=== PATIENT | male | born 1995 | race Caucasian/White ===

== ENCOUNTER 2017-06-04 13:23 | Emergency (ER) | payer BC ==
[2017-06-04 13:26] VITALS: BP 132/82; PULSE 111; RESP 18; TEMP 98.5
[2017-06-04] MEDS ORDERED: IBUPROFEN 600 MG STARTER PACK 4 TAB BTL PO STA (13:42)
[2017-06-04] MEDS ORDERED: ACETAMINOPHEN TAB 500 MG TAB PO STA (13:42)
--- NOTE | 2017-06-04 13:45 | ED ---
ENT HPI - General Chief complaint: ENT Stated complaint: Cough, headache Time Seen by Provider: 06/04/17 13:26 Source: patient Mode of arrival: ambulatory Limitations: no limitations - History of Present Illness Initial comments: 20 mg of the emergency Department chief complaint of cough, minor sore throat and headache for the past 2 days. Patient reports that he started coming down with symptoms yesterday. He reports that he went to work today, and fell he didn't go to work. Patient reports that he was left work and was told to come the emergency department. Patient states that he's had no known fevers or chills. Denies any significant headache he reports a 3 out of 10. No recent Motrin or Tylenol. Patient denies any neurological deficits or weakness. Denies any significant shortness of breath. He received VACCINATIONS. DENIES ANY NECK PAIN. DENIES ANY RECENT FALLS OR TRAUMA. She reports he came here for a work note. - Related Data Previous Rx's Medication Instructions Recorded Acetaminophen-Codeine 300-30mg 1 each PO Q6H PRN #20 tablet 05/07/15 [Tylenol #3] Ciprofloxacin HCl [Cipro] 500 mg PO Q12HR #20 tablet 05/07/15 metroNIDAZOLE [Flagyl] 500 mg PO QID #40 tab 05/07/15 Ibuprofen 800 mg PO BID #20 tablet 06/04/17 guaiFENesin-DM 600/30MG [Mucinex 1 each PO Q12HR #20 tab.er.12h 06/04/17 Dm] Allergies Allergy/AdvReac Type Severity Reaction Status Date / Time No Known Allergies Allergy Verified 06/04/17 13:26 Review of Systems ROS Statement: Those systems with pertinent positive or pertinent negative responses have been documented in the HPI. ROS Other: All systems not noted in ROS Statement are negative. Past Medical History Past Medical History: No Reported History History of Any Multi-Drug Resistant Organisms: None Reported Past Surgical History: No Surgical Hx Reported Past Psychological History: No Psychological Hx Reported Smoking Status: Never smoker Past Alcohol Use History: None Reported Past Drug Use History: None Reported General Exam - General Exam Comments Initial Comments: Well-appearing 21-year-old male. No stress. Limitations: no limitations General appearance: alert, in no apparent distress Head exam: Present: atraumatic Eye exam: Present: normal appearance, PERRL, EOMI. Absent: scleral icterus, conjunctival injection, periorbital swelling ENT exam: Present: normal exam, mucous membranes moist Neck exam: Present: normal inspection. Absent: tenderness, meningismus, lymphadenopathy Respiratory exam: Present: normal lung sounds bilaterally. Absent: respiratory distress, wheezes, rales, rhonchi, stridor Cardiovascular Exam: Present: regular rate, normal rhythm, normal heart sounds. Absent: systolic murmur, diastolic murmur, rubs, gallop, clicks GI/Abdominal exam: Present: soft, normal bowel sounds. Absent: distended, tenderness, guarding, rebound, rigid Extremities exam: Present: normal inspection, full ROM, normal capillary refill. Absent: tenderness, pedal edema, joint swelling, calf tenderness Back exam: Present: normal inspection Neurological exam: Present: alert, oriented X3, CN II-XII intact Psychiatric exam: Present: normal affect, normal mood Skin exam: Present: warm, dry, intact, normal color. Absent: rash Course Vital Signs 06/04/17 13:24 Temperature 98.5 F Pulse Rate 111 H Respiratory 18 Rate Blood Pressure 132/82 O2 Sat by Pulse 95 Oximetry Medical Decision Making - Medical Decision Making 21-year-old male presents emergency Department chief complaint cough, sore throat and headache for one day. Patient APPEARS normal. Patient reports having 3 out of 10. Patient's lungs are clear to auscultation. Neurologically intact. Patient has no fever at this time. Does report a mild headache. Given Tylenol and Motrin. Patient was informed is likely a viral illness, was written for decongestant medication. Discussed the same monitor for any fevers or any worsening symptoms and return to emergency department. He was given a note for work for today and tomorrow. Discussed MrDiony rest, remain hydrated. Patient agrees to treatment plan will comply. Return parameters were discussed. Disposition Clinical Impression: Upper respiratory infection Disposition: HOME SELF-CARE Condition: Good Instructions: Upper Respiratory Infection (ED) Additional Instructions: Ice to rest, increase fluids. Take [id number] cold medication as directed. Motrin Tylenol for fever and headache. Return to the emergency department if any alarming signs or symptoms occur. Prescriptions: guaiFENesin-DM 600/30MG [Mucinex Dm] 1 each PO Q12HR #20 tab.er.12h Ibuprofen 800 mg PO BID #20 tablet Referrals: Boom Abdi MD [Primary Care Provider] - 1-2 days Time of Disposition: 13:43
== END 2017-06-04 14:02 | disposition home or self-care (01) ==
LOC: EC 13:23
DX: J06.9 Acute upper respiratory infection, unspecified (principal)
CPT/HCPCS: 99283

== ENCOUNTER 2017-06-09 09:38 | Emergency (ER) | payer BC ==
[2017-06-09 09:42] VITALS: BP 141/81; PULSE 88; RESP 20; TEMP 98
--- NOTE | 2017-06-09 10:18 | ED ---
ENT HPI - General Chief complaint: Dental/Oral Stated complaint: poss dental abscess Time Seen by Provider: 06/09/17 09:43 Source: patient, RN notes reviewed Mode of arrival: ambulatory Limitations: no limitations - History of Present Illness Initial comments: 21-year-old male presents emergency Department with chief complaint of dental pain. Patient states bothering her last few days. Patient states all swallowing today. He states he has a crown in that region. He has not contacted his dentist. Denies fever, chills, neck pain. - Related Data Previous Rx's Medication Instructions Recorded Acetaminophen-Codeine 300-30mg 1 each PO Q6H PRN #20 tablet 05/07/15 [Tylenol #3] Ciprofloxacin HCl [Cipro] 500 mg PO Q12HR #20 tablet 05/07/15 metroNIDAZOLE [Flagyl] 500 mg PO QID #40 tab 05/07/15 Ibuprofen 800 mg PO BID #20 tablet 06/04/17 guaiFENesin-DM 600/30MG [Mucinex 1 each PO Q12HR #20 tab.er.12h 06/04/17 Dm] Acetaminophen-Codeine 300-30mg 1 tab PO Q4H PRN #20 tablet 06/09/17 [Tylenol #3] Chlorhexidine Gluconate [Peridex] 15 ml PO BID #473 ml 06/09/17 Penicillin V Potassium [Pen Vee K] 500 mg PO QID #40 tab 06/09/17 Allergies Allergy/AdvReac Type Severity Reaction Status Date / Time No Known Allergies Allergy Verified 06/09/17 10:02 Review of Systems ROS Statement: Those systems with pertinent positive or pertinent negative responses have been documented in the HPI. ROS Other: All systems not noted in ROS Statement are negative. Past Medical History Past Medical History: No Reported History History of Any Multi-Drug Resistant Organisms: None Reported Past Surgical History: No Surgical Hx Reported Past Psychological History: No Psychological Hx Reported Smoking Status: Never smoker Past Alcohol Use History: None Reported Past Drug Use History: None Reported General Exam Limitations: no limitations General appearance: alert, in no apparent distress Head exam: Present: atraumatic, normocephalic, normal inspection Eye exam: Present: normal appearance, PERRL, EOMI. Absent: scleral icterus, conjunctival injection, periorbital swelling ENT exam: Present: mucous membranes moist, TM's normal bilaterally, normal external ear exam. Absent: normal exam, normal oropharynx (Swelling over the left gumline, left lower dental physician, left-sided facial swelling and tenderness there is no drainable abscess noted) Neck exam: Present: normal inspection, full ROM. Absent: tenderness, meningismus, lymphadenopathy Respiratory exam: Present: normal lung sounds bilaterally. Absent: respiratory distress, wheezes, rales, rhonchi, stridor Cardiovascular Exam: Present: regular rate, normal rhythm, normal heart sounds. Absent: systolic murmur, diastolic murmur, rubs, gallop, clicks Course Vital Signs 06/09/17 09:40 Temperature 98.0 F Pulse Rate 88 Respiratory 20 Rate Blood Pressure 141/81 O2 Sat by Pulse 96 Oximetry Medical Decision Making - Medical Decision Making 21-year-old male presents emergency Department with facial swelling dental pain. Patient infection advised follow-up with PCP, dental clinic will start on Peridex, penicillin Disposition Clinical Impression: Dental abscess, Toothache Disposition: HOME SELF-CARE Condition: Stable Instructions: Dental Abscess (ED) Additional Instructions: Please return to the Emergency Department if symptoms worsen or any other concerns. Prescriptions: Acetaminophen-Codeine 300-30mg [Tylenol #3] 1 tab PO Q4H PRN #20 tablet PRN Reason: pain Chlorhexidine Gluconate [Peridex] 15 ml PO BID #473 ml Penicillin V Potassium [Pen Vee K] 500 mg PO QID #40 tab Referrals: Boom Abdi MD [Primary Care Provider] - 1-2 days Time of Disposition: 10:18
== END 2017-06-09 10:28 | disposition home or self-care (01) ==
LOC: EC 09:38
DX: K04.7 Periapical abscess without sinus (principal)
CPT/HCPCS: 99282

== ENCOUNTER 2017-11-01 11:56 | Emergency (ER) | payer BC ==
[2017-11-01 12:17] VITALS: BP 127/59; PULSE 58; RESP 17; TEMP 98.1
--- NOTE | 2017-11-01 12:24 | ED ---
Medical Clearance HPI - General Chief complaint: Medical Clearance Stated complaint: VOMITING Time Seen by Provider: 11/01/17 12:20 Source: patient Mode of arrival: ambulatory - History of Present Illness Initial comments: 22-year-old male patient presents to the emergency department today requesting a work note. Patient states that this morning when he woke from sleep he had vomiting and diarrhea. Patient states that he vomited 3-4 times. He had a couple episodes of diarrhea. He was concerned that he may have food poisoning so he stayed home from work. Patient states that he slept for a few more hours and woke up feeling well. States he has tolerated oral intake without any further vomiting or difficulty. He denies any current abdominal pain, fevers, or chills. States now he is feeling well and has no concerns. States that he needs a work not ollie he does not get fired from his job. Patient denies any recent rash, shortness breath, chest pain, back pain, numbness, tingling, dizziness, weakness, hematuria, dysuria, urinary urgency, urinary frequency, headache, visual changes, or any other complaints. Home medications: Previous Rx's Medication Instructions Recorded Acetaminophen-Codeine 300-30mg 1 each PO Q6H PRN #20 tablet 05/07/15 [Tylenol #3] Ciprofloxacin HCl [Cipro] 500 mg PO Q12HR #20 tablet 05/07/15 metroNIDAZOLE [Flagyl] 500 mg PO QID #40 tab 05/07/15 Ibuprofen 800 mg PO BID #20 tablet 06/04/17 guaiFENesin-DM 600/30MG [Mucinex 1 each PO Q12HR #20 tab.er.12h 06/04/17 Dm] Acetaminophen-Codeine 300-30mg 1 tab PO Q4H PRN #20 tablet 06/09/17 [Tylenol #3] Chlorhexidine Gluconate [Peridex] 15 ml PO BID #473 ml 06/09/17 Penicillin V Potassium [Pen Vee K] 500 mg PO QID #40 tab 06/09/17 Allergies/Adverse reactions: Allergies Allergy/AdvReac Type Severity Reaction Status Date / Time No Known Allergies Allergy Verified 11/01/17 12:14 Review of Systems ROS Statement: Those systems with pertinent positive or pertinent negative responses have been documented in the HPI. ROS Other: All systems not noted in ROS Statement are negative. Past Medical History Past Medical History: No Reported History History of Any Multi-Drug Resistant Organisms: None Reported Past Surgical History: No Surgical Hx Reported Past Psychological History: No Psychological Hx Reported Smoking Status: Never smoker Past Alcohol Use History: None Reported Past Drug Use History: None Reported General Exam Limitations: no limitations General appearance: alert, in no apparent distress, other (Physical well- developed, well-nourished adult male patient in no acute distress. Vital signs upon presentation are temperature 98.1F, pulse 58, respirations 17, blood pressure 127/59, pulse ox 98% on room air.) Eye exam: Present: normal appearance, PERRL, EOMI. Absent: scleral icterus, conjunctival injection, periorbital swelling ENT exam: Present: normal exam, normal oropharynx, mucous membranes moist Respiratory exam: Present: normal lung sounds bilaterally. Absent: respiratory distress, wheezes, rales, rhonchi, stridor Cardiovascular Exam: Present: regular rate, normal rhythm, normal heart sounds. Absent: systolic murmur, diastolic murmur, rubs, gallop, clicks GI/Abdominal exam: Present: soft, normal bowel sounds. Absent: distended, tenderness, guarding, rebound, rigid Neurological exam: Present: alert, oriented X3, CN II-XII intact Psychiatric exam: Present: normal affect, normal mood Skin exam: Present: warm, dry, intact, normal color. Absent: rash Course Vital Signs 11/01/17 12:14 Temperature 98.1 F Pulse Rate 58 L Respiratory 17 Rate Blood Pressure 127/59 O2 Sat by Pulse 98 Oximetry Medical Decision Making - Medical Decision Making 22-year-old male patient presented to the emergency department today requesting work note after having vomiting and diarrhea this morning. Physical examination is unremarkable. Abdomen is soft and nontender. Patient denies any current symptoms. Has been tolerating oral intake without any further vomiting. Denies any current abdominal pain. Did discuss return parameters. Instructed him to follow-up with his primary care physician. He is instructed to return here immediately for any new, worsening, or concerning symptoms. He verbalizes understanding and agrees with this plan. Disposition Clinical Impression: Vomiting and diarrhea Disposition: HOME SELF-CARE Condition: Good Instructions: Acute Nausea and Vomiting (ED), Acute Diarrhea (ED) Additional Instructions: Increase fluids. Follow-up with your primary care physician for recheck as soon as possible. Return here immediately for any new, worsening, or concerning symptoms. Referrals: Boom Abdi MD [Primary Care Provider] - 1-2 days Time of Disposition: 12:24
== END 2017-11-01 12:44 | disposition home or self-care (01) ==
LOC: EC 11:56
DX: R11.10 Vomiting, unspecified (principal); R19.7 Diarrhea, unspecified
CPT/HCPCS: 99282

== ENCOUNTER 2018-09-20 10:26 | Emergency (ER) | payer BC ==
[2018-09-20 10:30] VITALS: BP 119/61; PULSE 66; RESP 18; TEMP 97.7
[2018-09-20] MEDS ORDERED: ONDANSETRON 4 MG ODT STARTER PACK 2 TAB BTL PO STA (11:02)
--- NOTE | 2018-09-20 11:10 | ED ---
General Adult HPI - General Chief complaint: Nausea/Vomiting/Diarrhea Stated complaint: vomiting Time Seen by Provider: 09/20/18 10:49 Source: patient, RN notes reviewed Mode of arrival: ambulatory Limitations: no limitations - History of Present Illness Initial comments: 23-year-old male without any past medical history presents to the emergency department for a chief complaint of vomiting and diarrhea 2 days. Patient states he has vomited a few times yesterday and today. He states he has felt nauseous. He states he has been able to keep down some liquids. Patient also admits to abdominal cramping right before he vomits but denies any significant pain. He denies any fevers or chills. He also admits to mild diarrhea over the past 2 days. Patient states he is here for a work note to return tomorrow. He states that he does not get this note he will be fired from his job. Patient has no other complaints at this time including shortness of breath, chest pain, abdominal pain, headache, or visual changes. - Related Data Home Medications Medication Instructions Recorded Confirmed No Known Home Medications 09/20/18 09/20/18 Allergies Allergy/AdvReac Type Severity Reaction Status Date / Time No Known Allergies Allergy Verified 09/20/18 10:53 Review of Systems ROS Statement: Those systems with pertinent positive or pertinent negative responses have been documented in the HPI. ROS Other: All systems not noted in ROS Statement are negative. Past Medical History Past Medical History: No Reported History History of Any Multi-Drug Resistant Organisms: None Reported Past Surgical History: No Surgical Hx Reported Past Psychological History: No Psychological Hx Reported Smoking Status: Never smoker Past Alcohol Use History: None Reported Past Drug Use History: None Reported General Exam Limitations: no limitations General appearance: alert, in no apparent distress Head exam: Present: atraumatic, normocephalic, normal inspection Eye exam: Present: normal appearance, PERRL, EOMI. Absent: scleral icterus, conjunctival injection, periorbital swelling ENT exam: Present: normal exam, mucous membranes moist Neck exam: Present: normal inspection, full ROM. Absent: tenderness, meningismus, lymphadenopathy Respiratory exam: Present: normal lung sounds bilaterally. Absent: respiratory distress, wheezes, rales, rhonchi, stridor Cardiovascular Exam: Present: regular rate, normal rhythm, normal heart sounds. Absent: systolic murmur, diastolic murmur, rubs, gallop, clicks GI/Abdominal exam: Present: soft, normal bowel sounds. Absent: distended, tenderness (No significant tenderness on exam, no guarding, negative Spears sign.), guarding, rebound, rigid Neurological exam: Present: alert, oriented X3, CN II-XII intact Psychiatric exam: Present: normal affect, normal mood Skin exam: Present: warm, dry, intact, normal color. Absent: rash Course Vital Signs 09/20/18 10:28 Temperature 97.7 F Pulse Rate 66 Respiratory 18 Rate Blood Pressure 119/61 O2 Sat by Pulse 99 Oximetry Medical Decision Making - Medical Decision Making 23-year-old male without any past medical history presents for chief complaint of nausea vomiting and diarrhea 2 days. Patient states this started yesterday. Patient states he is here for a work note to return tomorrow. He states if he does not get this no he will be fired. Patient does admit to cramping but denies any significant abdominal pain. On exam no abdominal tenderness noted, no guarding. Patient is well appearing, sitting up in bed alert and pleasant. Vitals within acceptable limits. Patient is afebrile. Patient refuses any IV fluids, blood work, imaging. He states he does not need evaluation and is here for a note for work. Patient agrees to return to the emergency department if his symptoms are worsening or not resolving. He will follow up with primary care in 1-2 days. He was given Zofran for his symptoms. Disposition Clinical Impression: Nausea vomiting and diarrhea Disposition: HOME SELF-CARE Condition: Good Instructions: Acute Nausea and Vomiting (ED), Acute Diarrhea (ED) Additional Instructions: Drink plenty of fluids. Please follow up with primary care in 1-2 days. Return to the emergency department if you have any worsening symptoms. Is patient prescribed a controlled substance at d/c from ED?: No Referrals: Viviana Fulton MD [Primary Care Provider] - 1-2 days Time of Disposition: 11:10
== END 2018-09-20 11:30 | disposition home or self-care (01) ==
LOC: EC 10:26
DX: R11.2 Nausea with vomiting, unspecified (principal); R19.7 Diarrhea, unspecified; R10.9 Unspecified abdominal pain
CPT/HCPCS: 99283; S0119

== ENCOUNTER 2019-07-02 12:04 | Emergency (ER) | payer BC ==
[2019-07-02 12:17] VITALS: BP 122/62; PULSE 74; RESP 16; TEMP 98
--- NOTE | 2019-07-02 13:05 | ED ---
General Adult HPI - General Chief complaint: Upper Respiratory Infection Stated complaint: poss flu Time Seen by Provider: 07/02/19 12:36 Source: patient, RN notes reviewed, old records reviewed Mode of arrival: ambulatory Limitations: no limitations - History of Present Illness Initial comments: 23 year old male presents with one day of cold symptoms, he woke up with sinus congestion. Patient is here with significant other and wanted to start antibiotics before getting her sick. Patient has no fever and reports symptoms have improved throughout the day. Denies cough, fever, nausea nad vomiting. MD Complaint: sinus congestion Onset/Timin -: days(s) - Related Data Previous Rx's Medication Instructions Recorded Fluticasone Nasal [place] [Flonase 1 spray EA NOSTRIL DAILY #1 bottle 07/02/19 Nasal [place]] Phenylephrine/Dm/Acetaminop/GG 1 each PO BID #20 capsule 07/02/19 [Mucinex Sinus-Max Pressure-Cgh] Allergies Allergy/AdvReac Type Severity Reaction Status Date / Time No Known Allergies Allergy Verified 07/02/19 12:16 Review of Systems ROS Statement: Those systems with pertinent positive or pertinent negative responses have been documented in the HPI. ROS Other: All systems not noted in ROS Statement are negative. Past Medical History Past Medical History: No Reported History History of Any Multi-Drug Resistant Organisms: None Reported Past Surgical History: No Surgical Hx Reported Past Psychological History: No Psychological Hx Reported Smoking Status: Never smoker Past Alcohol Use History: Daily Past Drug Use History: Marijuana General Exam - General Exam Comments Initial Comments: 23 year old male, well appearing. Limitations: no limitations General appearance: alert, in no apparent distress Head exam: Present: atraumatic, normocephalic, normal inspection Eye exam: Present: normal appearance, PERRL, EOMI. Absent: scleral icterus, conjunctival injection, periorbital swelling ENT exam: Present: normal exam, mucous membranes moist Neck exam: Present: normal inspection. Absent: tenderness, meningismus, lymphadenopathy Respiratory exam: Present: normal lung sounds bilaterally. Absent: respiratory distress, wheezes, rales, rhonchi, stridor Cardiovascular Exam: Present: regular rate, normal rhythm, normal heart sounds. Absent: systolic murmur, diastolic murmur, rubs, gallop, clicks GI/Abdominal exam: Present: soft, normal bowel sounds. Absent: distended, tenderness, guarding, rebound, rigid Extremities exam: Present: normal inspection, full ROM, normal capillary refill. Absent: tenderness, pedal edema, joint swelling, calf tenderness Back exam: Present: normal inspection Neurological exam: Present: alert, oriented X3, CN II-XII intact Psychiatric exam: Present: normal affect, normal mood Skin exam: Present: warm, dry, intact, normal color. Absent: rash Course Vital Signs 07/02/19 12:14 Temperature 98.0 F Pulse Rate 74 Respiratory 16 Rate Blood Pressure 122/62 O2 Sat by Pulse 97 Oximetry Medical Decision Making - Medical Decision Making 23 year old male with one day of cold like symptoms with rhinorrhea nad congestion. He states he needs abx. Discussed likely viral cause and supportive measures such as decongestant and nasal spray is all he needs at this time. Patient will follow up withPCP. Return parameters discussed. Disposition Clinical Impression: Viral upper respiratory illness Disposition: HOME SELF-CARE Condition: Good Instructions (If sedation given, give patient instructions): Upper Respiratory Infection (ED) Additional Instructions: Advised to take Motrin Tylenol for pain. He can use decongestant medicine and nasal spray as prescribed. Return to the emergency department if any alarming signs or symptoms occur. Prescriptions: Fluticasone Nasal [place] [Flonase Nasal [place]] 1 spray EA NOSTRIL DAILY #1 bottle Phenylephrine/Dm/Acetaminop/GG [Mucinex Sinus-Max Pressure-Cgh] 1 each PO BID #20 capsule Is patient prescribed a controlled substance at d/c from ED?: No Referrals: Viviana Fulton MD [Primary Care Provider] - 1-2 days Time of Disposition: 13:03
== END 2019-07-02 13:17 | disposition home or self-care (01) ==
LOC: EC 12:04
DX: J06.9 Acute upper respiratory infection, unspecified (principal)
CPT/HCPCS: 99283

== ENCOUNTER 2019-09-11 09:35 | Emergency (ER) | payer BC ==
[2019-09-11 10:11] VITALS: BP 131/73; PULSE 62; TEMP 98.6
--- NOTE | 2019-09-11 10:41 | ED ---
URI HPI - General Chief Complaint: Upper Respiratory Infection Stated Complaint: cold/congestion Time Seen by Provider: 09/11/19 10:14 Source: patient, RN notes reviewed Mode of arrival: ambulatory Limitations: no limitations - History of Present Illness Initial Comments: 24-year-old male presents emergency Department with chief complaint of cough congestion. Patient states she's been sick last few days. Patient states she is concerned has has some other is do with her child's any day now. Patient states that his cough is productive at times. He complains of sore throat and mild nasal congestion or ear pain currently no current medication use. Is here to chills - Related Data Previous Rx's Medication Instructions Recorded Fluticasone Nasal [place] [Flonase 1 spray EA NOSTRIL DAILY #1 bottle 07/02/19 Nasal [place]] Phenylephrine/Dm/Acetaminop/GG 1 each PO BID #20 capsule 07/02/19 [Mucinex Sinus-Max Pressure-Cgh] Azithromycin [Zithromax Z-pack] 0 mg PO DIRECTED #1 pack 09/11/19 Allergies Allergy/AdvReac Type Severity Reaction Status Date / Time No Known Allergies Allergy Verified 09/11/19 10:11 Review of Systems ROS Statement: Those systems with pertinent positive or pertinent negative responses have been documented in the HPI. ROS Other: All systems not noted in ROS Statement are negative. Past Medical History Past Medical History: No Reported History History of Any Multi-Drug Resistant Organisms: None Reported Past Surgical History: No Surgical Hx Reported Past Psychological History: No Psychological Hx Reported Smoking Status: Never smoker Past Alcohol Use History: Occasional Past Drug Use History: Marijuana General Exam Limitations: no limitations General appearance: alert, in no apparent distress Head exam: Present: atraumatic, normocephalic, normal inspection Eye exam: Present: normal appearance, PERRL, EOMI. Absent: scleral icterus, co njunctival injection, periorbital swelling ENT exam: Present: normal oropharynx, mucous membranes moist, TM's normal bilaterally. Absent: normal exam (Postnasal drainage) Neck exam: Present: normal inspection, full ROM. Absent: tenderness, meningismus, lymphadenopathy Respiratory exam: Present: normal lung sounds bilaterally. Absent: respiratory distress, wheezes, rales, rhonchi, stridor Cardiovascular Exam: Present: regular rate, normal rhythm, normal heart sounds. Absent: systolic murmur, diastolic murmur, rubs, gallop, clicks Course Vital Signs 09/11/19 10:09 Temperature 98.6 F Pulse Rate 62 Respiratory 18 Rate Blood Pressure 131/73 O2 Sat by Pulse 97 Oximetry Medical Decision Making - Medical Decision Making Patient has upper respiratory infection. I did explain is most likely viral that is very concerned about his maybe that is due soon. Patient will be given prescription advised if symptoms are improving he may start this. Return parameters were discussed. Disposition Clinical Impression: Acute upper respiratory infection Disposition: HOME SELF-CARE Condition: Stable Instructions (If sedation given, give patient instructions): Upper Respiratory Infection (ED) Additional Instructions: Please return to the Emergency Department if symptoms worsen or any other concerns. Prescriptions: Azithromycin [Zithromax Z-pack] 0 mg PO DIRECTED #1 pack Is patient prescribed a controlled substance at d/c from ED?: No Referrals: Viviana Fulton MD [Primary Care Provider] - 1-2 days Time of Disposition: 10:41
[2019-09-11 10:51] VITALS: RESP 20
== END 2019-09-11 10:50 | disposition home or self-care (01) ==
LOC: EC 09:35
DX: J06.9 Acute upper respiratory infection, unspecified (principal)
CPT/HCPCS: 99283

== ENCOUNTER 2020-03-18 12:33 | Emergency (ER) | payer BC ==
[2020-03-18 12:45] VITALS: BP 116/69; PULSE 58; RESP 18; TEMP 98.2
--- NOTE | 2020-03-18 13:07 | ED ---
ENT HPI - General Chief complaint: ENT Stated complaint: sore throat Time Seen by Provider: 03/18/20 12:47 Source: patient Mode of arrival: ambulatory Limitations: no limitations - History of Present Illness Initial comments: Patient is a 24-year-old male presenting to the emergency Department with complaints of a sore throat 4 days. Patient also admits to some mild nasal congestion as well. He denies any fever, chills, shortness of breath, chest pain. He does admit to mild cough but states he works in a [employer] and he normally has a mild cough. He states that he has a new baby at home and with his sore throat persists saying he wanted to be tested for COVID. Patient's work is also requiring him to be tested. Patient denies history of asthma. He does admit to being every day smoker. He has no further complaints at this time. Upon arrival to the ER, his vital signs are stable, afebrile. - Related Data Home Medications Medication Instructions Recorded Confirmed Phenol [Chloraseptic] 1 spray MUCOUS MEM Q2H PRN 03/18/20 03/18/20 Allergies Allergy/AdvReac Type Severity Reaction Status Date / Time No Known Allergies Allergy Verified 03/18/20 13:08 Review of Systems ROS Statement: Those systems with pertinent positive or pertinent negative responses have been documented in the HPI. ROS Other: All systems not noted in ROS Statement are negative. Past Medical History Past Medical History: No Reported History History of Any Multi-Drug Resistant Organisms: None Reported Past Surgical History: No Surgical Hx Reported Past Psychological History: No Psychological Hx Reported Smoking Status: Current every day smoker Past Alcohol Use History: Occasional Past Drug Use History: Marijuana General Exam - General Exam Comments Initial Comments: GENERAL: Well-appearing, well-nourished and in no acute distress. HEAD: Atraumatic, normocephalic. EYES: Pupils equal round and reactive to light, extraocular movements intact, sclera anicteric, conjunctiva are normal. ENT: TMs normal, nares patent, oropharynx mildly erythematous, no exudate. Moist mucous membranes. NECK: Normal range of motion, supple without lymphadenopathy or JVD. LUNGS: Breath sounds clear to auscultation bilaterally and equal. No wheezes rales or rhonchi. HEART: Regular rate and rhythm without murmurs, rubs or gallops. ABDOMEN: Soft, nontender, normoactive bowel sounds. No guarding, no rebound. No masses appreciated. : Deferred EXTREMITIES: Normal range of motion, no pitting or edema. No clubbing or cyanosis. NEUROLOGICAL: Normal speech, normal gait. PSYCH: Normal mood, normal affect. SKIN: Warm, Dry, normal turgor, no rashes or lesions noted. Limitations: no limitations Course Vital Signs 03/18/20 12:41 Temperature 98.2 F Pulse Rate 58 L Respiratory 18 Rate Blood Pressure 116/69 O2 Sat by Pulse 98 Oximetry Medical Decision Making - Medical Decision Making Patient is a 24-year-old male here for a sore throat 4 days as well as nasal congestion. No fevers. His vitals are stable here. Exam reveals a mildly erythematous oropharynx, no exudate, no tonsillar enlargement. Strep is negative today. Discussed the patient has symptoms most likely viral in nature. His COVID testing is pending at this time. He is stable for discharge. Continue with Tylenol Motrin for discomfort. He is in agreement with this plan of care. Return parameters were discussed with the patient he verbalizes understanding. - Lab Data Lab Results 03/18/20 03/18/20 Range/Units 13:03 13:03 Coronavirus (PCR) Not Detected (Not Detected) Group A Strep Rapid Negative (Negative) Disposition Clinical Impression: Viral illness, Sore throat Disposition: HOME SELF-CARE Condition: Stable Instructions (If sedation given, give patient instructions): Viral Syndrome (ED) Additional Instructions: Please return to the Emergency Department if symptoms worsen or any other concerns. COVID test is pending. Follow-up with PCP. Is patient prescribed a controlled substance at d/c from ED?: No Referrals: Viviana Fulton MD [Primary Care Provider] - 1-2 days
== END 2020-03-18 14:21 | disposition home or self-care (01) ==
LOC: EC 12:33
DX: B34.9 Viral infection, unspecified (principal); J02.9 Acute pharyngitis, unspecified; F17.200 Nicotine dependence, unspecified, uncomplicated; Z20.828 Contact with and (suspected) exposure to other viral communicable diseases
CPT/HCPCS: 87081; 87430; 99283; U0003

== ENCOUNTER 2020-04-24 11:09 | Emergency (ER) | payer BC ==
[2020-04-24 11:24] VITALS: BP 132/77; PULSE 77; RESP 20; TEMP 97.9
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
--- NOTE | 2020-04-24 11:45 | XR ---
EXAMINATION TYPE: XR knee complete LT DATE OF EXAM: 04/24/2020 COMPARISON: NONE HISTORY: Pain TECHNIQUE: Three views are submitted. FINDINGS: Joint spaces are preserved. There is a lucency along the lateral tibial plateau. There is fluid in th e suprapatellar bursa. IMPRESSION: 1. Lucency along the lateral tibial plateau. Recommend CT of the knee to exclude nondisplaced fractur e. 2. There is fluid within the suprapatellar bursa.
[2020-04-24] MEDS ORDERED: ACET/COD 300 MG/30 MG STARTER PACK 6 TAB BTL PO STA (12:30)
--- NOTE | 2020-04-24 12:30 | CT ---
EXAMINATION TYPE: CT knee LT wo con DATE OF EXAM: 04/24/2020 COMPARISON: 04/24/2020 HISTORY: Left knee injury yesterday, unable to bear weight. CT DLP: 139.4 mGycm Automated exposure control for dose reduction was used. FINDINGS: There is a depressed lateral tibial plateau fracture posteriorly. Depression of approximately 2.5 mm. Appears to be 2 separate fracture lines along the posterior margin of the lateral tibial plateau. There is a moderate amount of fluid in the suprapatellar bursa. Patella intact. Remaining osseous str uctures intact. Soft tissue edema noted. IMPRESSION: 1. There is a slightly depressed lateral tibial plateau fracture posteriorly. 2. Moderate amount suprapatellar bursal fluid.
== END 2020-04-24 12:35 | disposition home or self-care (01) ==
LOC: EC 11:09
DX: S82.142A Displaced bicondylar fracture of left tibia, initial encounter for closed fracture (principal); V86.56XA Driver of dirt bike or motor/cross bike injured in nontraffic accident, initial encounter; Y93.55 Activity, bike riding; Y92.89 Other specified places as the place of occurrence of the external cause
CPT/HCPCS: 99284

== ENCOUNTER 2020-08-19 10:14 | Emergency (ER) | payer BC, OTHER ==
[2020-08-19 10:25] VITALS: BP 135/77; PULSE 74; RESP 18; TEMP 99.3
--- NOTE | 2020-08-19 10:38 | ED ---
General Adult HPI - General Chief complaint: Recheck/Abnormal Lab/Rx Stated complaint: sore throat Time Seen by Provider: 08/19/20 10:26 Source: patient Mode of arrival: ambulatory Limitations: no limitations - History of Present Illness Initial comments: Dictation was produced using [employer] dictation software. please excuse any grammatical, word or spelling errors. This patient was cared for during a federal and state declared state of emergency secondary to Covid 19 Chief Complaint: 24-year-old male presents with coronavirus testing request History of Present Illness: 24-year-old male he wants to be tested for coronavirus. She states he had a couple hours of sore throat 2 days ago. He was exposed to his mother who was around his aunt who also had coronavirus. Patient does not have any symptoms today. The ROS documented in this emergency department record has been reviewed and confirmed by me. Those systems with pertinent positive or negative responses have been documented in the HPI. All other systems are other negative and/or noncontributory. PHYSICAL EXAM: General Impression: Alert and oriented x3, not in acute distress HEENT: Normocephalic atraumatic, extra-ocular movements intact, pupils equal and reactive to light bilaterally, mucous membranes moist. Cardiovascular: Heart regular rate and rhythm Chest: Able to complete full sentences, no retractions, no tachypnea Abdomen: abdomen soft, non-tender, non-distended, no organomegaly Musculoskeletal: Pulses present and equal in all extremities, no peripheral edema Motor: no focal deficits noted Neurological: CN II-XII grossly intact, no focal motor or sensory deficits noted Skin: Intact with no visualized rashes Psych: Normal affect and mood ED course:24-year-old male presents for coronavirus testing. Rapid PCR tests ordered. Patient told to quarantine to his results are available. Vital signs are stable. Patient will be discharged. - Related Data Home Medications Medication Instructions Recorded Confirmed Phenol [Chloraseptic] 1 spray MUCOUS MEM Q2H PRN 03/18/20 03/18/20 Allergies Allergy/AdvReac Type Severity Reaction Status Date / Time No Known Allergies Allergy Verified 08/19/20 10:25 Review of Systems ROS Statement: Those systems with pertinent positive or pertinent negative responses have been documented in the HPI. ROS Other: All systems not noted in ROS Statement are negative. Past Medical History Past Medical History: No Reported History History of Any Multi-Drug Resistant Organisms: None Reported Past Surgical History: No Surgical Hx Reported Past Psychological History: No Psychological Hx Reported Smoking Status: Never smoker Past Alcohol Use History: Occasional Past Drug Use History: Marijuana General Exam Limitations: no limitations Course Vital Signs 08/19/20 10:23 Temperature 99.3 F Pulse Rate 74 Respiratory 18 Rate Blood Pressure 135/77 O2 Sat by Pulse 99 Oximetry Disposition Clinical Impression: Sore throat Disposition: HOME SELF-CARE Condition: Good Additional Instructions: Today you were evaluated for symptoms consistent with upper respiratory infection. There is concern that perhaps your symptomatology may represent Covid 19. Your are stable for discharge, however it is instructed to to seek immediate medical attention especially if you develop worsening symptoms especially respiratory distress. In the meantime please remain in quarantine for 14 days. For any other questions please contact [facility] for here in emergency department or [facility] at [phone] Is patient prescribed a controlled substance at d/c from ED?: No Referrals: Viviana Fulton MD [Primary Care Provider] - 1-2 days Time of Disposition: 10:38
== END 2020-08-19 11:00 | disposition home or self-care (01) ==
LOC: EC 10:14
DX: J02.9 Acute pharyngitis, unspecified (principal); Z20.828 Contact with and (suspected) exposure to other viral communicable diseases
CPT/HCPCS: 99282; U0003

== ENCOUNTER 2020-11-21 10:58 | Emergency (ER) | payer BC ==
[2020-11-21 11:05] VITALS: BP 117/66; PULSE 69; RESP 16; TEMP 98.1
--- NOTE | 2020-11-21 11:39 | ED ---
General Adult HPI - General Chief complaint: Extremity Injury, Upper Stated complaint: Both hand pain Time Seen by Provider: 11/21/20 11:18 Source: patient Mode of arrival: ambulatory Limitations: no limitations - History of Present Illness Initial comments: 25-year-old male patient presents to the emergency department today for evaluation of bilateral hand pain. Patient states that he woke up this morning he was having significant pain to the bilateral hands. Denies any swelling or discoloration. States the pain encompasses all fingers and entirety of his palm. States that he does work at a job where he uses his hands a lot. States he has worked there for the last couple of years. States that the pain is better now. Denies taking anything for his symptoms. States he did call in to work and needs a work note. Denies any fever or chills. Denies any known injury. - Related Data Previous Rx's Medication Instructions Recorded Ibuprofen [Motrin] 600 mg PO Q8HR PRN #30 tab 11/21/20 Allergies Allergy/AdvReac Type Severity Reaction Status Date / Time No Known Allergies Allergy Verified 11/21/20 11:05 Review of Systems ROS Statement: Those systems with pertinent positive or pertinent negative responses have been documented in the HPI. ROS Other: All systems not noted in ROS Statement are negative. Past Medical History Past Medical History: No Reported History History of Any Multi-Drug Resistant Organisms: None Reported Past Surgical History: No Surgical Hx Reported Past Psychological History: No Psychological Hx Reported Smoking Status: Never smoker Past Alcohol Use History: Occasional Past Drug Use History: Marijuana General Exam Limitations: no limitations General appearance: alert, in no apparent distress, other (This is a well- developed, well-nourished adult male patient in no acute distress. Vital signs upon presentation are temperature 98.1F, pulse 69, respirations 16, blood pressure 117/66, pulse ox 97% on room air per) Respiratory exam: Present: normal lung sounds bilaterally. Absent: respiratory distress, wheezes, rales, rhonchi, stridor Cardiovascular Exam: Present: regular rate, normal rhythm, normal heart sounds. Absent: systolic murmur, diastolic murmur, rubs, gallop, clicks Extremities exam: Present: normal inspection, full ROM, normal capillary refill, other (Skin to the hand is pink, warm, dry. Cap refill less than 3 seconds. Radial pulses 2+ and equal bilaterally). Absent: tenderness, pedal edema, joint swelling, calf tenderness Neurological exam: Present: alert, oriented X3, CN II-XII intact Psychiatric exam: Present: normal affect, normal mood Skin exam: Present: warm, dry, intact, normal color. Absent: rash Course Vital Signs 11/21/20 11:02 Temperature 98.1 F Pulse Rate 69 Respiratory 16 Rate Blood Pressure 117/66 O2 Sat by Pulse 97 Oximetry Medical Decision Making - Medical Decision Making 25-year-old male patient presents to the emergency department today for evaluation of bilateral hand pain that was present and he woke up this morning. Physical examination is unremarkable. Neurovascular status is intact. He has had no injury. States that his pain is improved now. 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 We did discuss arthralgia related to repetitive use. Xray is not recommended due to normal exam, improved pain, and no injury. He'll be given a prescription for ibuprofen. He did request a work note, this will be provided. He is instructed to follow-up with his primary care physician for recheck in 1-2 days. Return parameters were discussed in detail. He verbalizes understanding and agrees with this plan. My attending is Dr. Sheth. Disposition Clinical Impression: Bilateral hand pain Disposition: HOME SELF-CARE Condition: Good Instructions (If sedation given, give patient instructions): Arthralgia (ED) Additional Instructions: Take medications as directed. Follow-up through primary care physician for further evaluation as soon as possible. Return to the emergency department for any new, worsening, or concerning symptoms. Prescriptions: Ibuprofen [Motrin] 600 mg PO Q8HR PRN #30 tab PRN Reason: Pain Is patient prescribed a controlled substance at d/c from ED?: No Referrals: Viviana Fulton MD [Primary Care Provider] - 1-2 days Time of Disposition: 11:39
== END 2020-11-21 11:54 | disposition home or self-care (01) ==
LOC: EC 10:58
DX: M79.642 Pain in left hand (principal); M79.641 Pain in right hand; X50.3XXA Overexertion from repetitive movements, initial encounter; Y99.0 Civilian activity done for income or pay
CPT/HCPCS: 99283

== ENCOUNTER 2021-07-25 10:37 | Emergency (ER) | payer BC ==
[2021-07-25 11:09] VITALS: BP 148/68; PULSE 68; RESP 18; TEMP 98.5
--- NOTE | 2021-07-25 12:31 | ED ---
URI HPI - General Chief Complaint: Upper Respiratory Infection Stated Complaint: Cough, possible covid Time Seen by Provider: 07/25/21 11:11 Source: patient, RN notes reviewed Mode of arrival: ambulatory Limitations: no limitations - History of Present Illness Initial Comments: Patient is a 25-year-old male presenting to the emergency Department with co mplaints of a mild cough that started yesterday. He states his employer made him come in for evaluation for Covid. He does admit to some mild sinus congestion pain he had some chest discomfort yesterday while he was moving around. States been doing a lot more activity at work and feels like it just muscle soreness. Denies any fevers or chills, no nausea or vomiting, no shortness of breath or chest pain today. - Related Data Home Medications Medication Instructions Recorded Confirmed No Known Home Medications 07/25/21 07/25/21 Allergies Allergy/AdvReac Type Severity Reaction Status Date / Time No Known Allergies Allergy Verified 07/25/21 11:57 Review of Systems ROS Statement: Those systems with pertinent positive or pertinent negative responses have been documented in the HPI. ROS Other: All systems not noted in ROS Statement are negative. Past Medical History Past Medical History: No Reported History History of Any Multi-Drug Resistant Organisms: None Reported Past Surgical History: No Surgical Hx Reported Past Psychological History: No Psychological Hx Reported Smoking Status: Never smoker Past Alcohol Use History: Occasional Past Drug Use History: Marijuana General Exam - General Exam Comments Initial Comments: GENERAL: Patient is well-developed and well-nourished. Patient is nontoxic and in no acute distress. HEAD: Atraumatic, normocephalic. EYES: Pupils equal round and reactive to light, extraocular movements intact, sclera anicteric, conjunctiva are normal. Eyelids were unremarkable. ENT: Oropharynx clear without exudates. Moist mucous membranes. NECK: Normal range of motion, supple without lymphadenopathy or JVD. LUNGS: Unlabored respirations. Breath sounds clear to auscultation bilaterally and equal. No wheezes rales or rhonchi. HEART: Regular rate and rhythm without murmurs, rubs or gallops. ABDOMEN: Soft, nontender, normoactive bowel sounds. No guarding, no rebound. No masses appreciated. MUSCULOSKELETAL: Normal extremities with adequate strength and normal range of motion, no pitting or edema. No clubbing or cyanosis. NEUROLOGICAL: Patient is alert and oriented x 3. SKIN: Warm, Dry, normal turgor, no rashes or lesions noted. Limitations: physical limitation Course Vital Signs 07/25/21 11:07 Temperature 98.5 F Pulse Rate 68 Respiratory 18 Rate Blood Pressure 148/68 O2 Sat by Pulse 97 Oximetry Medical Decision Making - Medical Decision Making Patient is a 25-year-old male sent in for mild cough that started yesterday. His work wanted him to be evaluated for cold. Exam is unremarkable, rapid covid is negative. He thinks the cough is from the dust at work. He is stable for discharge she can follow-up with his primary care as needed. - Lab Data Lab Results 07/25/21 Range/Units 11:26 Coronavirus (PCR) Not Detected (Not Detectd) Disposition Clinical Impression: Cough Disposition: HOME SELF-CARE Condition: Stable Instructions (If sedation given, give patient instructions): Acute Cough (ED) Additional Instructions: Please return to the Emergency Department if symptoms worsen or any other concerns. Covid test is negative. Recommend wearing mask at work around the dust. Follow up with your primary care. Is patient prescribed a controlled substance at d/c from ED?: No Referrals: Viviana Fulton MD [Primary Care Provider] - 1-2 days Time of Disposition: 12:30
== END 2021-07-25 12:36 | disposition home or self-care (01) ==
LOC: EC 10:37
DX: R05.9 Cough, unspecified (principal); F12.90 Cannabis use, unspecified, uncomplicated; Z72.89 Other problems related to lifestyle
CPT/HCPCS: 87635; 99283